=== PATIENT | female | born 1960 | race Caucasian/White ===

== ENCOUNTER 2022-01-09 18:11 | Observation (INO) | payer MEDICARE, OTHER ==
[2022-01-09 18:19] VITALS: BMI 27.1
[2022-01-09 21:19] LABS: BASO % 0.5 % (0-2.0); EOS % 0.5 % (0-4.5); HEMATOCRIT 38.8 % (32.4-45.2); HEMOGLOBIN 13.4 GM/dL (10.7-15.3); LYMPH % 13.3 % (8-40); MCH 31.2 pg (25.7-33.7); MCHC 34.5 g/dl (32.0-36.0); MEAN CELL VOLUME 90.3 fl (80-96); MEAN PLT VOLUME 7.1 fl (7.5-11.1); MONO % 4.6 % (3.8-10.2); NEUT % 81.1 % (42.8-82.8); PLATELET COUNT 357 10^3/uL (134-434); RBC 4.29 M/mm3 (3.60-5.2); RDW 13.7 % (11.6-15.6); WHITE BLOOD COUNT 8.5 K/mm3 (4.0-10.0)
[2022-01-09 21:25] LABS: INR 0.97 (0.83-1.09); PROTHROMBIN TIME (PATIENT) 11.1 SEC (9.7-13.0)
[2022-01-09 21:27] LABS: ACTIVATED PTT 34.4 SECONDS (25.2-36.5)
[2022-01-09 21:40] LABS: ALBUMIN 4.2 g/dl (3.4-5.0); CALCIUM 8.7 mg/dL (8.5-10.1)
[2022-01-09 21:43] LABS: CREATININE 0.8 mg/dL (0.55-1.3)
[2022-01-09 21:45] LABS: BILIRUBIN,TOTAL 0.3 mg/dL (0.2-1); TOT PROT 8.2 g/dl (6.4-8.2)
[2022-01-10] MEDS ORDERED: DEXAMETHASONE SOD PHOSPHATE 10 MG/1 ML VIAL IVPUSH ONE (00:51)
[2022-01-10] MEDS ORDERED: ENOXAPARIN NA (PORCINE) 60 MG/0.6 ML DISP.SYRIN SQ SCH (01:00)
[2022-01-10] MEDS ORDERED: ENOXAPARIN NA (PORCINE) 60 MG/0.6 ML DISP.SYRIN SQ ONE (01:00)
[2022-01-10] MEDS ORDERED: DEXAMETHASONE SOD PHOSPHATE 10 MG/1 ML VIAL ONE ×3 (01:01→08:07)
[2022-01-10] MEDS ORDERED: ALBUTEROL SO4 0.083% IH SOL 2.5 MG/3 ML VIAL.NEB. NEB PRN (02:19)
[2022-01-10] MEDS ORDERED: ALBUTEROL SO4 HFA INHALER IH PRN (02:19)
[2022-01-10] MEDS ORDERED: DEXAMETHASONE SOD PHOSPHATE 20 MG/5 ML VIAL IVPB SCH (02:30)
[2022-01-10] MEDS ORDERED: DEXAMETHASONE SOD PHOSPHATE 4 MG/1 ML VIAL IVPB SCH (02:31)
[2022-01-10] MEDS ORDERED: LEVOTHYROXINE NA 50 MCG TABLET (FP) ONE (06:06)
[2022-01-10] MEDS ORDERED: LEVOTHYROXINE NA 75 MCG TABLET (FP) ONE (06:06)
[2022-01-10] MEDS: DEXAMETHASONE SOD PHOSPHATE 4 MG/1 ML VIAL IVPB SCH ×2 (06:11→10:00)
[2022-01-10] MEDS ORDERED: LEVOTHYROXINE NA 125 MCG TABLET (FP) PO SCH (07:00)
[2022-01-10] MEDS ORDERED: PANTOPRAZOLE 20 MG TABLET PO SCH (10:00)
[2022-01-10] MEDS ORDERED: ENOXAPARIN NA (PORCINE) 40 MG/0.4 ML DISP.SYRIN SQ SCH ×2 (10:00→13:00)
[2022-01-10] MEDS ORDERED: ACETAMINOPHEN 325 MG TABLET (FP) PO ONE (10:57)
[2022-01-10] MEDS ORDERED: PANTOPRAZOLE 20 MG TABLET PO ONE (11:03)
[2022-01-10] MEDS ORDERED: ACETAMINOPHEN 325 MG TABLET (FP) ONE (11:04)
[2022-01-10 13:47] VITALS: BP 118/83; PULSE 100; TEMP 98.4
== END 2022-01-10 14:00 | disposition home or self-care (01) ==
LOC: JER 18:11 → JERBED 01-10 00:57
PROVIDERS: ADMIT Hospitalist; ATTEND Internal Medicine
PROC: 3E033GC Introduction of Other Therapeutic Substance into Peripheral Vein, Percutaneous Approach (ICD-10-PCS; principal; 2022-01-10)
PROC: 3E023GC Introduction of Other Therapeutic Substance into Muscle, Percutaneous Approach (ICD-10-PCS; 2022-01-10)
DX: R07.89 Other chest pain (principal); I10 Essential (primary) hypertension; R79.89 Other specified abnormal findings of blood chemistry; M54.9 Dorsalgia, unspecified; E78.5 Hyperlipidemia, unspecified; Z90.09 Acquired absence of other part of head and neck; Z29.8 Encounter for other specified prophylactic measures; Z88.0 Allergy status to penicillin; Z88.8 Allergy status to other drugs, medicaments and biological substances
CPT/HCPCS: 0241U-QW; 36415; 71046-TC-FY; 71275-TC; 80053; 84484; 85025; 85379; 85610; 85730; 93005; 93010; 93970-TC; 96372; 96374; 96375; 96376; 99285-25; G0378; J1100; Q9967